=== PATIENT | male | born 1965 | race Two or more races ===

== ENCOUNTER 2023-09-01 08:52 | Outpatient (CLI) | payer OTHER ==
[2023-09-01 10:05] LABS: HEMATOCRIT 39.9 % (39.0-48.0); HEMOGLOBIN 13.3 g/dL (13-16.00); MEAN CELL VOLUME 89.7 fL (80.0-100.00); MEAN CORPUSCULAR HEMOGLOBIN 29.9 pg (27.00-32.0); MEAN CORPUSCULAR HGB CONC 33.3 g/dl (32.0-36.0); PLATELET COUNT 249 K/uL (150-450); RED BLOOD COUNT 4.44 M/uL (4.00-6.00); RED CELL DISTRIBUTION WIDTH 12.6 % (11.5-14.5)
[2023-09-01 10:46] LABS: COL EPI 103 SECONDS (82-175)
[2023-09-01 10:49] LABS: BILIRUBIN TOTAL 0.57 mg/dL (0.3-1.2); CALCIUM 9.8 mg/dL (8.5-10.1); GFR 77.02; GLOBULINA 3.7 G/DL (2.4-3.5); PH,URINE 5.5 (5.0-8.0); POTASSIUM 4.67 mEq/L (3.5-5.1); TOTAL PROTEIN 7.7 gm/dL (6.4-8.2); URINE APPEARANCE Clear; URINE BILIRRUBIN Negative (NEGATIVE); URINE BLOOD Negative; URINE COLOR Yellow; URINE GLUCOSE Negative (NEGATIVE); URINE LEUKOCYTE Negative; URINE NITRATE Negative; URINE PROTEIN Negative (NEGATIVE); URINE UROBILINOGEN 0.2 E.U./dl
[2023-09-01 10:54] LABS: URINE BACTERIA 33.9 uL (0.0-1933); URINE EPITHELIAL CELLS 4.1 uL (0.0-38.8); URINE WBC 5.7 uL (0.0-23.2)
[2023-09-01 11:03] LABS: INR 0.95; PARTIAL THROMBOPLASTIN TIME 28.5 SECONDS (22.0-34.0)
[2023-09-01 11:10] LABS: URINE RBC 1.1 uL (0.0-20.8)
== END 2023-09-01 12:31 | disposition home or self-care (01) ==
LOC: LAB 08:52
PROVIDERS: ATTEND Orthopaedic Surgery
DX: D64.9 Anemia, unspecified (principal); D68.8 Other specified coagulation defects; N39.0 Urinary tract infection, site not specified; Z20.822 Contact with and (suspected) exposure to COVID-19; E11.9 Type 2 diabetes mellitus without complications; E55.9 Vitamin D deficiency, unspecified; E03.8 Other specified hypothyroidism; E88.89 Other specified metabolic disorders; I10 Essential (primary) hypertension; Z76.89 Persons encountering health services in other specified circumstances; M25.511 Pain in right shoulder; M25.112 Fistula, left shoulder

== ENCOUNTER 2023-09-18 07:01 | Outpatient (CLI) | payer OTHER ==
[2023-09-18 07:54] LABS: HEMATOCRIT 40.9 % (39.0-48.0); HEMOGLOBIN 13.6 g/dL (13-16.00); MEAN CELL VOLUME 91.1 fL (80.0-100.00); MEAN CORPUSCULAR HEMOGLOBIN 30.2 pg (27.00-32.0); MEAN CORPUSCULAR HGB CONC 33.2 g/dl (32.0-36.0); PLATELET COUNT 229 K/uL (150-450); RED BLOOD COUNT 4.49 M/uL (4.00-6.00); RED CELL DISTRIBUTION WIDTH 12.6 % (11.5-14.5)
== END 2023-09-18 07:03 | disposition home or self-care (01) ==
LOC: LAB 07:01
PROVIDERS: ATTEND Orthopaedic Surgery
DX: D64.89 Other specified anemias (principal)

== ENCOUNTER → 2024-07-29 09:39 | Outpatient (CLI) | payer OTHER ==
[2024-07-29 10:32] LABS: HEMATOCRIT 39.5 % (39.0-48.0); HEMOGLOBIN 13.4 g/dL (13-16.00); MEAN CELL VOLUME 91.8 fL (80.0-100.00); MEAN CORPUSCULAR HGB CONC 33.8 g/dl (32.0-36.0); PLATELET COUNT 233 K/uL (150-450); RED CELL DISTRIBUTION WIDTH 12.4 % (11.5-14.5)
[2024-07-29 10:44] LABS: PH,URINE 5.5 (5.0-8.0); URINE APPEARANCE Clear; URINE BILIRRUBIN Negative (NEGATIVE); URINE BLOOD Negative; URINE COLOR Yellow; URINE GLUCOSE Negative (NEGATIVE); URINE KETONE Negative (NEGATIVE); URINE LEUKOCYTE Small; URINE NITRATE Negative; URINE PROTEIN Negative (NEGATIVE); URINE UROBILINOGEN 0.2 E.U./dl
[2024-07-29 10:45] LABS: URINE BACTERIA 118.4 uL (0.0-1933); URINE EPITHELIAL CELLS 7.7 uL (0.0-38.8); URINE WBC 28.2 uL (0.0-23.2)
[2024-07-29 10:46] LABS: URINE CAST 0.15 uL (0.0-1.40); URINE RBC 1.6 uL (0.0-20.8)
[2024-07-29 11:19] LABS: ALBUMIN 3.9 gm/dL (3.4-5.0); BILIRUBIN TOTAL 0.38 mg/dL (0.3-1.2); CALCIUM 9.2 mg/dL (8.5-10.1); GFR 76.75; GLOBULINA 3.5 G/DL (2.4-3.5); POTASSIUM 4.68 mEq/L (3.5-5.1); TOTAL PROTEIN 7.4 gm/dL (6.4-8.2)
[2024-07-29 11:31] LABS: COL EPI 108 SECONDS (82-175)
[2024-07-29 12:03] LABS: INR 0.96; PARTIAL THROMBOPLASTIN TIME 25.9 SECONDS (22.0-34.0)
== END | disposition home or self-care (01) ==
LOC: RAD 09:39
PROVIDERS: ATTEND Orthopaedic Surgery
DX: D64.9 Anemia, unspecified (principal); E88.89 Other specified metabolic disorders; D68.8 Other specified coagulation defects; N39.0 Urinary tract infection, site not specified; Z22.322 Carrier or suspected carrier of Methicillin resistant Staphylococcus aureus; Z76.89 Persons encountering health services in other specified circumstances; I10 Essential (primary) hypertension

== ENCOUNTER → 2025-04-15 | Emergency (ER) | payer OTHER ==
[~2025-04-15] VITALS: Ht 167.6 cm; Wt 53.5 kg
[2025-04-15 15:44] VITALS: BP 95/66; O2SAT 100
== END | disposition left against medical advice (07) ==
LOC: ER 14:30
DX: Z53.21 Procedure and treatment not carried out due to patient leaving prior to being seen by health care provider (principal)